=== PATIENT | male | born 1950 | race Caucasian/White ===

== ENCOUNTER 2023-04-10 00:09 | Emergency (ER) | payer MEDICARE, SELFPAY ==
[2023-04-10] VITALS (7 sets, daily range): BP systolic 144–186; BP diastolic 78–98; PULSE 60–71; RESP 14–21; TEMP 36.5; O2SAT 94–99; BMI 34.2
--- NOTE | 2023-04-10 00:10 | XRR_ITS ---
PROCEDURE INFORMATION: Exam: XR Right Hip Exam date and time: 04/10/2023 12:13 AM Age: 72 years old Clinical indication: Injury or trauma; Other: Dislocation; Right; Prior surgery; Surgery date: 6+ months; Surgery type: RT michaela; Patient HX: Patient states he felt his hip dislocate when he went to stand up from sitting. States this has happened four times before. TECHNIQUE: Imaging protocol: Radiologic exam of the right hip. Views: 1 view hip with pelvis when performed. COMPARISON: No relevant prior studies available. FINDINGS: Bones/joints: Right hip prosthesis. There is a posterior and superior dislocation of the right femoral prosthetic component. No fracture is visualized. Soft tissues: Unremarkable. XR/XR hip RT 2-3V wo/w pel* [id number] IMPRESSION: Right hip prosthesis dislocation.
--- NOTE | 2023-04-10 00:12 | W.ED.EXTPRO ---
HPI - Extremity Problem General: Chief complaint: Extremity Injury, Lower Stated complaint: dislocated hip Time Seen by Provider: 04/10/23 00:10 Source: patient Mode of arrival: ambulatory Limitations: no limitations History of Present Illness: 72-year-old male has had history of hip dislocations in the past he states he stood up and felt a pop in his right hip and believes he dislocated that hip. He is unable to stand on anymore he has pain he rates a 4 out of 10 he did receive pain meds and EMS that helped denies any other injuries. Associated symptoms: Deny chest pain, fever(s) or rash Review of Systems Const: Denies: fever(s), chills, body aches or change in appetite ENMT: Denies: throat pain or dental pain Card: Denies: chest pain Resp: Denies: dyspnea GI: Denies: abdominal pain, nausea, vomiting or diarrhea Musc: Reports: extremity pain; Denies: neck pain or back pain Skin/Breast: Denies: rash Neuro: Denies: headache(s) Physical Exam Const: COMMON NORMALS: no acute distress, patient oriented x3 and healthy appearing HENMT: COMMON NORMALS: normocephalic and atraumatic HEAD & SCALP: normocephalic and atraumatic Neck/C-Spine: COMMON NORMALS: full ROM and supple Chest: COMMONS NORMALS: normal inspection of the chest Resp: COMMON NORMALS: normal respiratory effort Cardio: COMMON NORMALS: regular rate, regular rhythm and No murmurs present (Cardio) RATE: regular rate RHYTHM: regular rhythm GI: COMMON NORMALS: Normal to inspection, nondistended, normoactive bowel sounds present, Soft to palpation, non-tender and no masses PALPATION: Yes Soft to palpation Extremity: COMMON NORMALS: full ROM NARRATIVE EXTREMITY EXAM: deformity and shortening of right hip Neuro: COMMON NORMALS: patient oriented x3, moves all extremities and no focal motor deficits Psych: COMMON NORMALS: mental status grossly normal, Normal thought process present and cooperative THOUGHT PROCESS: Normal thought process present Skin: COMMON NORMALS: no rashes or lesions noted and no wounds GENERAL SKIN EXAM: no rashes or lesions noted Procedures Orthopedic Joint Reduction Joint #1: Time Out Performed: Yes Side: right Joint Reduction Location: hip Analgesia: procedural sedation Shoulder Technique Used (if applicable): traction/counter-traction Post-reduction neuro exam: intact Post-reduction vascular: intact Post Reduction X-Ray Obtained: Yes Post Reduction X-Ray Results: reduced Splint Applied: Yes Patient Tolerated Procedure: well Procedural Sedation Indication: fracture/dislocation reduction ASA Class: II Time of Last PO Intake: 19:00 Preparation: java user interface developer applied and pulse oximeter IV Propofol dose (mg): 60 Patient Tolerated Procedure: well Complications: none Course Vital Signs: Vital signs: Vital Signs Temperature 97.7 F 04/10/23 00:12 Pulse Rate 60 04/10/23 00:51 Respiratory Rate 21 H 04/10/23 00:51 Blood Pressure 147/78 04/10/23 00:51 Pulse Oximetry 99 04/10/23 00:51 Oxygen Delivery Me thod Nasal Cannula 04/10/23 00:51 Oxygen Flow Rate 1 04/10/23 00:51 MDM - Extremity (Nontraumatic) Medical Decision Making Patient presents here with a right hip dislocation was able to successfully reduce the hip patient placed in knee immobilizer given crutches he is to follow-up with his orthopedist in [place] he is stable for discharge. Imaging Data xr r hip: I personally reviewed and interpreted this imaging study as follows: My impression: right hip dislocation Discharge Plan Discharge Patient Disposition: Home Clinical Impression: Closed dislocation of right hip Condition: Stable Discharge Orders: Discharge ED (Routine); Ordered 04/10/23 Ordered By: Guillermo Law Discharge Diet: Advance as tolerated Discharge Activity: Resume usual activity Patient Instructions: Hip Dislocation (ED) Coding Level of Care Code ED Firewall Administrator for Shayne Vázquez
--- NOTE | 2023-04-10 00:33 | XRR_ITS ---
PROCEDURE INFORMATION: Exam: XR Right Hip Exam date and time: 04/10/2023 12:40 AM Age: 72 years old Clinical indication: Injury or trauma; Other: Dislocation; Right; Hip; Prior surgery; Surgery date: 6+ months; Surgery type: Manuel; Patient HX: Check S/P reduction TECHNIQUE: Imaging protocol: Radiologic exam of the right hip. Views: 1 view hip with pelvis when performed. COMPARISON: CR (PELVIS, ) 04/10/2023 12:13 AM FINDINGS: Bones/joints: Right hip prosthesis now intact. Interval relocation. No fracture visualized. Soft tissues: Unremarkable. XR/XR hip RT 1V wo/w pel [id number] IMPRESSION: Interval right hip prosthesis relocation.
[2023-04-10] MEDS: propofol 10 mg/mL SDV 20 mL 100 MG IVP (00:40)
--- NOTE | 2023-04-13 12:31 | DCPLANNER ---
TCM called patient due to no primary care physician - no answer at this time. Patient does not live in the area.
== END 2023-04-10 01:19 | disposition home or self-care (01) ==
PROVIDERS: Emergency Provider Emergency Medicine
DX: S73.004A Unspecified dislocation of right hip, initial encounter (principal); X58.XXXA Exposure to other specified factors, initial encounter
CPT/HCPCS: 27250; 73501; 73502; 99285; E0114; J2704